=== PATIENT | female | born 1995 | race Caucasian/White ===

== ENCOUNTER 2016-11-05 18:45 | Emergency (ER) | payer MEDICAID, OTHER ==
[~2016-11-05] VITALS: Ht 162.6 cm; Wt 86.0 kg
[~2016-11-05 18:45] MED LIST: GUAN1ER PO; RISP.25 PO
[2016-11-05 18:47] VITALS: BP 142/67; PULSE 83; RESP 12; TEMP 97.9; O2SAT 97
[2016-11-05] MEDS ORDERED: AMOX875T PO (19:25)
--- NOTE | 2016-11-05 19:27 | PD ---
HPI Chief Complaint: ENT Complaint Time Seen by Provider: 19:20 Travel History International Travel<30 days: No Contact w/Intl Traveler<30days: No Traveled to known affect area: No History of Present Illness HPI This is a 21-year-old female who presents for evaluation of sore throat. Symptoms started 2 days ago. She reports pain when she swallows, harsh, no alleviating factors. Associated tenderness anterior cervical lymph nodes. She has had subjective fevers at home as well, particularly at night. No cough or congestion, rash or recent travel. No sick contacts. She does endorse tobacco use. She has no other complaints at this time. PFSH Past Medical History ADHD: Yes ( DID SEE TONY OVER SIX MOS AGO) Cancer: No Cardiovascular Problems: No Diabetes: No Psychiatric: No Migraines: Yes (1 WEEK AGO) Seizures: No Thyroid Disease: No Ulcer: No ?: Not LMP: NOW Past Surgical History Surgical History: No Previous Surgery Other Surgery: No Social History Alcohol Use: No Tobacco Use: Yes Substance Use: Yes (marijuana) Allergies-Medications (Allergen,Severity, Reaction): Coded Allergies: No Known Allergies (Unverified , 11/05/16) Reported Meds & Prescriptions Reported Meds & Active Scripts Active Reported Intuniv (Guanfacine Hcl) 1 Mg Tab 1 Mg PO DAILY Risperdal (Risperidone) 0.25 Mg Tab 0.25 Mg PO BID Review of Systems General / Constitutional: Positive: Fever, Chills HENT: Positive: Sore Throat, No: Congestion Respiratory: No: Cough Physical Exam Narrative GENERAL: Well-developed well-nourished female in no acute distress SKIN: Warm and dry. HEAD: Atraumatic. Normocephalic. EYES: Pupils equal and round. No scleral icterus. No injection or drainage. ENT: No nasal bleeding or discharge. Mucous membranes pink and moist. Oral pharyngeal erythema, slight exudate formation, uvula midline without mass effect. NECK: Trachea midline. No JVD. Tender anterior cervical lymphadenopathy. Neck supple full range of motion. CARDIOVASCULAR: Regular rate and rhythm. No murmur appreciated. RESPIRATORY: No accessory muscle use. Clear to auscultation. Breath sounds equal bilaterally. Data Data Last Documented VS Vital Signs Date Time Temp Pulse Resp B/P Pulse Ox O2 Delivery O2 Flow Rate FiO2 11/05/16 18:47 97.9 83 12 142/67 97 [facility] Medical Decision Making Medical Screen Exam Complete: Yes Emergency Medical Condition: Yes Medical Record Reviewed: Yes Differential Diagnosis Pharyngitis, tonsillitis, peritonsillar abscess, infectious mononucleosis, herpangina, epiglottitis, retropharyngeal abscess Narrative Course 21-year-old female with 2 days of sore throat, subjective fevers, tender anterior cervical lymph nodes. Her history and examination are suggestive of streptococcal pharyngitis. She will be treated with a ten-day course of amoxicillin. She is stable for discharge. Diagnosis Primary Impression: Pharyngitis Qualified Code: J02.9 - Pharyngitis, unspecified etiology Additional Instructions: Medication as prescribed. Stay well hydrated well-nourished. Take over-the- counter Tylenol or Motrin for discomfort. Finish the entire course of antibiotics. Return for any emergent medical conditions. Med/Other Pt SpecificInfo: Prescription(s) given Scripts Amoxicillin 875 Mg Lcw214 Mg PO BID 10 Days Ref 0 Prov:Clayton Bell MD 11/05/16 Disposition: 01 DISCHARGE HOME Condition: Stable Lenny Hong Nov 05, 2016 19:27
== END 2016-11-05 19:50 | disposition home or self-care (01) ==
LOC: NETRI 18:45
DX: J02.9 Acute pharyngitis, unspecified (principal); Z72.0 Tobacco use
CPT/HCPCS: 99282